=== PATIENT | female | born 1955 | race Caucasian/White ===

== ENCOUNTER 2016-09-12 06:37 | Day surgery (SDC) ==
[2016-09-10 09:33] LABS: HEMATOCRIT 42.4 % (37.0-47.0); HEMOGLOBIN 13.9 g/dL (12.0-16.0); MCH 28.1 PG (27-31); MCHC 32.8 g/dL (33-37); MCV 85.7 FL (81-99); MPV 12.4 FL (7.4-10.4); RBC 4.95 XMIL (4.2-5.4)
[2016-09-10 10:21] LABS: AGAP 14; BUN 17 mg/dL (8-22); CALCIUM 9.7 mg/dL (8.8-10.2); CHLORIDE 103 mmol/L (98-107); COSMO 282; POTASSIUM 4.3 mmol/L (3.5-5.1); SODIUM 140 mmol/L (136-145); TCO2 23 mmol/L (25-35)
--- NOTE | 2016-09-10 10:47 | EKG Report ---
Test Performed on : 09/10/2016 09:16:46 AM Test Reason : PAT Blood Pressure : / mmHG Vent. Rate : 070 BPM Atrial Rate : 070 BPM P-R Int : 178 ms QRS Dur : 086 ms QT Int : 384 ms P-R-T Axes : 047 003 058 degrees QTc Int : 414 ms Normal sinus rhythm. Cannot rule out Anterior infarct , age undetermined Abnormal ECG No previous ECGs available Confirmed by Praful KHAN, Shawn Cazares ([id number]) on 09/10/2016 4:27:20 PM
[2016-09-12] MEDS ORDERED: PEPCID ONE (07:11)
[2016-09-12] MEDS ORDERED: REGLAN ONE (07:11)
[2016-09-12] MEDS ORDERED: LR 1,000 ML ONE ×2 (07:11→13:53)
[2016-09-12] MEDS ORDERED: KEFZOL 1 GM/D5W 50 ML ONE (07:11)
[2016-09-12] MEDS ORDERED: MARCAINE 0.25% PF/EPI 1:200,000 ONE (10:17)
[2016-09-12] MEDS ORDERED: METHYLENE BLUE 1% ONE (10:17)
[2016-09-12] MEDS ORDERED: MORPHINE ONE (12:15)
[2016-09-12] MEDS ORDERED: DIPRIVAN 1% ONE (12:16)
[2016-09-12] MEDS ORDERED: FENTANYL ONE (12:16)
[2016-09-12] MEDS: MORPHINE ONE ×3 (12:41→12:53)
[2016-09-12] MEDS ORDERED: PHENERGAN ONE (13:02)
[2016-09-12] MEDS ORDERED: ZOFRAN ONE (13:53)
[2016-09-12] MEDS ORDERED: XYLOCAINE-MPF 2% ONE (13:53)
[2016-09-12] MEDS ORDERED: DECADRON ONE (13:53)
[2016-09-12] MEDS ORDERED: NORCO-10 ONE (14:27)
[2016-09-12 15:54] VITALS: BP 135/73
--- NOTE | 2016-09-12 17:01 | OPERATIVE NOTE ---
PROCEDURE DATE: 09/12/2016 DATE OF SURGERY: 09/12/2016. PREOPERATIVE DIAGNOSIS: Left breast cancer. POSTOPERATIVE DIAGNOSIS: Left breast cancer. PRINCIPAL PROCEDURES: 1. Left breast stereotactic needle localization of left breast cancer. 2. Left breast lumpectomy after needle localization. 3. Left axillary sentinel lymph node biopsy. SURGEON: Jessica Roque MD. ANESTHESIA: General. ESTIMATED BLOOD LOSS: 75 mL. DRAINS: None. INDICATIONS: Salud Brooks is a 61-year-old white female, who recently underwent bilateral breast screening mammograms which showed an indeterminate density in the mid left breast. It was not visualized using ultrasound. Biopsy was recommended. We did a left breast stereotactic biopsy which documented invasive cancer. This appeared to be a small lesion. We discussed surgical treatment options and she chose breast conservation treatment. FINDINGS: We performed a generous lumpectomy using a periareolar incision inferiorly, left breast. We removed the needle localization wire in its entirety. I could not palpate this cancer, but we sent it down for x-ray and it suggested that with this lumpectomy the density in question was removed, along with the wire and the previous biopsy marker. We did take extra breast tissue along the margins; the superior margin, the deep margin and the lateral margin; they were sent separately. We felt we had cleared the left breast of her invasive breast cancer, and we marked our excision lumpectomy site with clips. We then directed our attention to the axilla and we did identify a sentinel lymph node which had 10 second counts of 8000. When we removed it, the counts in the left axilla in-vivo decreased dramatically. We removed a total of 2 lymph nodes; 1 was the sentinel lymph node and 1 was close to the sentinel node, and we brought it out in the same specimen. They were sent down to the pathologist for permanent section because she is going to get postoperative radiation anyway. PROCEDURE IN DETAIL: Initially, she was taken down to our mammography center. She was placed prone on our [facility] stereotactic breast table. A CC view of the left breast was performed, and the density in question was identified. Using the stereotactic images and coordinates, we directed a needle localization wire into the area of the breast cancer, which was in the mid aspect of her left breast. Postprocedure stereotactic images suggested accurate placement of our wire. She was then taken to our ultrasound room, laid supine on a stretcher where I marked my incision. This cancer or biopsy site were not visualized well with ultrasound. Later that morning, she went to the operating room. Her left breast and axilla were prepped and draped within the sterile field. The exit site of our needle localization wire was inferiorly in the mid breast. We chose a periareolar incision to perform our lumpectomy. This incision was made with a 15-blade scalpel, and it was carried down using the cautery through the subcutaneous tissue to the breast tissue proper. We identified the needle localization wire within the breast, and using this localization wire we performed a generous lumpectomy in the mid left breast. This lumpectomy specimen was sent down to radiology, and the x-ray suggested removal of the area in question. We did take separate specimens of our lumpectomy site. These were new margins for the superior, lateral and deep margins of our lumpectomy site. Clips were placed in the lumpectomy area to laura it for postoperative radiation. Irrigation was performed. Any bleeding was controlled using the cautery or 3-0 silk stitches, and we closed the wound in 1 layer with 4-0 Monocryl subcuticular stitch. We then directed our attention to the left axilla. We made an oblique incision below the hairline left axilla again using the 15-blade scalpel, and this incision was carried down through the skin and subcutaneous tissue using the cautery into the fatty tissue proper of the left axilla. Using the Navigator probe, we identified the area of the sentinel node and dissected the sentinel node out using the cautery. Actually 2 lymph nodes were removed with this 1 excision specimen that had the sentinel lymph node within it. The 10 second counts were over 8000 ex-vivo and, once removing these 2 lymph nodes, the counts in the left axilla decreased dramatically. We did not remove any other sentinel lymph nodes. We closed this wound with 4-0 Monocryl subcuticular stitch. Dressings were applied. We did not send the lymph nodes or any specimen for frozen section. We will await for the permanent pathology. She will go to the recovery room and then be discharged home later today under the care of her family.
== END 2016-09-12 15:15 | disposition home or self-care (01) ==
LOC: PAT 06:37
PROVIDERS: ATTEND Surgery
DX: C50.912 Malignant neoplasm of unspecified site of left female breast (principal); E11.9 Type 2 diabetes mellitus without complications; E66.01 Morbid (severe) obesity due to excess calories; M47.819 Spondylosis without myelopathy or radiculopathy, site unspecified; M17.9 Osteoarthritis of knee, unspecified; G47.33 Obstructive sleep apnea (adult) (pediatric); Z68.41 Body mass index [BMI] 40.0-44.9, adult; Z83.3 Family history of diabetes mellitus; Z82.49 Family history of ischemic heart disease and other diseases of the circulatory system; Z82.3 Family history of stroke; Z79.82 Long term (current) use of aspirin; Z79.899 Other long term (current) drug therapy
CPT/HCPCS: 19283; 19285; 38792; 80048; 85027; 88305; 88307; 93005; 93010; A9520; J0690; J1100; J2270; J2405; J2550; J3010; J7120; Q9968